=== PATIENT | female | born 1955 | race African-American/Black ===

== ENCOUNTER 2016-12-28 08:50 | Inpatient (IN) | payer BC, MEDICAID ==
[~2016-12-28] VITALS: Ht 167.6 cm; Wt 67.4 kg
[~2016-12-28 08:50] MED LIST: PRED10PA7; [UNRECOGNIZED DRUG - CODE]
[2016-12-28] MEDS ORDERED: SODIUM CHLORIDE 0.9% 500 ML IV ONE (09:04)
[2016-12-28] MEDS ORDERED: KETOROLAC TROMETH 30 MG/ML 1ML VIAL IV ONE (09:15)
[2016-12-28 09:58] LABS: DEFINITIVE VIEW TRANSMISSION; Hematocrit 29.1 % (36.0-46.0); Hemoglobin 9.9 g/dL (12.2-16.2); Mean Corpuscular Hgb Conc. 34.1 g/dL (32.0-36.0); Mean Corpuscular Volume 102.7 fL (80.0-100.0); Mean Platelet Volume 9.3 fL (7.4-10.4); Platelet Count (auto) 154 10^3/uL (140-450); Red Cell Distribution Width 16.8 % (11.6-16.0); White Blood Cell 5.2 10^3/uL (4.4-10.8)
[2016-12-28 10:09] LABS: Metamyelocytes % 0; Myelocytes % 0; Promyelocytes % 0; Reactive Lymphocytes 0
[2016-12-28] MEDS: SODIUM CHLORIDE 0.9% 1,000 ML IV SCH ×2 (10:35→20:35)
[2016-12-28 10:45] LABS: Albumin 2.3 g/dL (3.4-5.0); BUN/Creatinine Ratio 5.1; Bilirubin, Total 1.5 mg/dL (0.2-1.0); Calcium 7.6 mg/dL (8.5-10.1); Magnesium 1.9 mg/dL (1.6-2.6); Potassium 3.4 mmol/L (3.5-5.1)
[2016-12-28] MEDS ORDERED: TEMAZEPAM 15 MG CAP PO PRN (10:45)
[2016-12-28] MEDS ORDERED: HYDROcodone-ACET 5/325MG TAB PO PRN (10:45)
[2016-12-28] MEDS ORDERED: ACETAMINOPHEN 500 MG TAB PO PRN (10:45)
[2016-12-28] MEDS ORDERED: NITROGLYCERIN 0.4 MG SL TAB SL PRN (10:45)
[2016-12-28] MEDS ORDERED: PROMETHAZINE HCL 25 MG/ML 1ML IV PRN (10:45)
[2016-12-28] MEDS ORDERED: ENOXAPARIN SOD 40 MG/0.4 ML SYRINGE SC ONE (11:30)
[2016-12-28] MEDS ORDERED: ASPirin 81 mg TAB PO ONE (11:30)
[2016-12-28 11:43] LABS: Partial Thromboplastin Time 21.7 sec (22.64-33.71)
[2016-12-28 11:49] LABS: Prothrombin Time 12.7 sec (9.37-12.3)
[2016-12-28 11:51] LABS: INR 1.23 (0.9-1.15)
[2016-12-28 13:00] VITALS: BP 125/85
[2016-12-28 13:09] LABS: Urine Bilirubin Negative (Negative); Urine Blood Negative /uL (Negative); Urine Color Yellow (Yellow); Urine Glucose Normal (Normal); Urine Nitrite Negative (Negative); Urine RBC 1 /hpf (0 - 4); Urine Squamous Epithelial Cell MOD /hpf (<5); Urine pH 5.5 (5.0-8.0)
[2016-12-28 13:16] LABS: Urine Ketone 1+ (Negative)
[2016-12-28 15:36] LABS: Macrocytosis Slight; Platelet Estimate Adequate; Tear Drop Cells FEW
[2016-12-28 15:37] LABS: Burr Cells MODERATE
[2016-12-28 15:55] LABS: Temperature: 22.6 C (20.0-25.0)
[2016-12-28] MEDS: POTASSIUM CHL 20 Meq TABLET PO ONE ×2 (16:15→16:44)
[2016-12-28] MEDS: HYDROcodone-ACET 5/325MG TAB PO PRN (16:44)
[2016-12-28 17:00] VITALS: BP 148/86
[2016-12-28] MEDS ORDERED: SOD CHL 0.9%/ KCL 20MEQ 1,000 ML IV SCH (17:00)
[2016-12-28] MEDS ORDERED: SOD CHL 0.9%/ KCL 20MEQ 1,000 ML IV ONE (17:00)
[2016-12-28] MEDS: LORazepam 0.5 MG TAB PO PRN (18:43)
[2016-12-28] MEDS ORDERED: methylPREDNISolone SOD SUCC 40 MG/ML VL IV ONE (18:45)
[2016-12-28 21:35] VITALS: BP 107/69
[2016-12-28] MEDS: methylPREDNISolone SOD SUCC 40 MG/ML VL IV SCH (21:51)
[2016-12-28] MEDS ORDERED: PROG100C4 PO (22:40)
[2016-12-28] MEDS ORDERED: GAB300C PO (22:40)
[2016-12-28] MEDS ORDERED: OMEP20CA5 OR (22:40)
[2016-12-28] MEDS ORDERED: ESTR2TAB PO (22:40)
[2016-12-28] MEDS ORDERED: ONDA4TAB5 SL (22:40)
[2016-12-29] MEDS: HYDROcodone-ACET 5/325MG TAB PO PRN ×2 (01:57→09:36)
[2016-12-29 05:07] VITALS: BP 117/72
[2016-12-29] MEDS: SODIUM CHLORIDE 0.9% 1,000 ML IV SCH (05:16)
[2016-12-29 08:00] VITALS: BP 127/75
[2016-12-29] MEDS ORDERED: IOHEXOL 350 MG/ML 100ML IJ ONE (08:25)
[2016-12-29 08:33] VITALS: BP 127/75
[2016-12-29] MEDS: ASPirin 81 mg TAB PO SCH (09:24)
[2016-12-29] MEDS: methylPREDNISolone SOD SUCC 40 MG/ML VL IV SCH ×2 (09:24→21:30)
[2016-12-29] MEDS: ENOXAPARIN SOD 40 MG/0.4 ML SYRINGE SC SCH (09:25)
[2016-12-29 13:00] VITALS: BP 129/95
[2016-12-29] MEDS ORDERED: traMADol HCL 50 MG TAB PO PRN (15:45)
[2016-12-29] MEDS: D5W/ SOD CHL 0.9%/KCL 20MEQ 1,000 ML IV SCH (16:42)
[2016-12-29 16:58] VITALS: BP 123/77
[2016-12-29 17:14] LABS: Albumin 2.2 g/dL (3.4-5.0); BUN/Creatinine Ratio 7.6; Calcium 6.9 mg/dL (8.5-10.1); Potassium 3.6 mmol/L (3.5-5.1)
[2016-12-29 17:29] LABS: Bilirubin, Total 0.9 mg/dL (0.2-1.0); Total Protein 5.6 g/dL (6.4-8.2)
[2016-12-29] MEDS: LORazepam 0.5 MG TAB PO PRN (21:14)
[2016-12-29] MEDS: Boost Breeze 8 Ounces PO SCH (21:31)
[2016-12-29 22:00] VITALS: BP 116/76
[2016-12-30] MEDS: HYDROcodone-ACET 5/325MG TAB PO PRN (03:58)
[2016-12-30 04:30] VITALS: BP 142/95
[2016-12-30] MEDS: D5W/ SOD CHL 0.9%/KCL 20MEQ 1,000 ML IV SCH (05:02)
[2016-12-30 06:23] LABS: Magnesium 1.8 mg/dL (1.6-2.6); Phosphorus 2.9 mg/dL (2.5-4.90)
[2016-12-30 07:42] LABS: Basophils # (auto) 0 uL; DEFINITIVE VIEW TRANSMISSION; Eosinophils # (auto) 0 uL; Hematocrit 30.1 % (36.0-46.0); Lymphocytes # (auto) 0.2 uL; Lymphocytes % (auto) 5.9 % (10.0-50.0); Mean Corpuscular Hemoglobin 35.1 pg (28.0-32.0); Mean Corpuscular Hgb Conc. 33.4 g/dL (32.0-36.0); Mean Corpuscular Volume 105.1 fL (80.0-100.0); Mean Platelet Volume 9.2 fL (7.4-10.4); Monocytes # (auto) 0.3 uL; Monocytes % (auto) 6.4 % (0.0-12.0); Neutrophils # (auto) 3.7 uL; Neutrophils % (auto) 87.7 % (37.0-80.0); Platelet Count (auto) 156 10^3/uL (140-450); Red Cell Distribution Width 16.6 % (11.6-16.0); SUSPECT VIEW TRANSMISSION; White Blood Cell 4.2 10^3/uL (4.4-10.8)
[2016-12-30 08:00] VITALS: BP 116/80
[2016-12-30] MEDS: ASPirin 81 mg TAB PO SCH (09:24)
[2016-12-30] MEDS: methylPREDNISolone SOD SUCC 40 MG/ML VL IV SCH (09:24)
[2016-12-30] MEDS: ENOXAPARIN SOD 40 MG/0.4 ML SYRINGE SC SCH (09:24)
[2016-12-30] MEDS: Boost Breeze 8 Ounces PO SCH (09:25)
[2016-12-30 09:31] VITALS: BP 116/80
[2016-12-30] MEDS ORDERED: PRO-STAT 64 30ML PO SCH (10:00)
[2016-12-30 12:30] LABS: Macrocytosis Slight
[2016-12-30 12:47] VITALS: BP 126/80
[2016-12-30 12:51] LABS: Tear Drop Cells FEW
[2016-12-30 12:52] LABS: Burr Cells FEW; Platelet Estimate Adequate
[2016-12-30 15:48] VITALS: BP 144/88
[2016-12-30 16:37] VITALS: BP 116/80
== END 2016-12-30 17:21 | disposition home or self-care (01) | DRG 207 ==
LOC: ER 08:50 → EDBD 08:50 → TELE 08:51 → TELE-E-ADS 12:29 → TELE-WESTW 14:09
PROVIDERS: ADMIT Internal Medicine; ATTEND Internal Medicine
DX: I95.9 Hypotension, unspecified (principal); E44.1 Mild protein-calorie malnutrition; K75.9 Inflammatory liver disease, unspecified; K50.90 Crohn's disease, unspecified, without complications; G62.9 Polyneuropathy, unspecified; E88.09 Other disorders of plasma-protein metabolism, not elsewhere classified; I10 Essential (primary) hypertension; M06.9 Rheumatoid arthritis, unspecified; E87.6 Hypokalemia; Z96.641 Presence of right artificial hip joint; D64.9 Anemia, unspecified; E86.0 Dehydration; Z82.49 Family history of ischemic heart disease and other diseases of the circulatory system; Z88.5 Allergy status to narcotic agent; Z88.8 Allergy status to other drugs, medicaments and biological substances; Z68.24 Body mass index [BMI] 24.0-24.9, adult
CPT/HCPCS: 36415; 70450; 71010; 71275; 76705; 80053; 80061; 80074; 81001; 82550; 82607; 82746; 83735; 84100; 84439; 84443; 84484; 85007; 85025; 85027; 85379; 85610; 85652; 85730; 86141; 87081; 93005; 93306; 93886; 94761; 96361; 96372; 96374; G0434; J1885